=== PATIENT | female | born 1990 | race Hispanic/Latino ===

== ENCOUNTER 2019-01-16 09:34 | Day surgery (SDC) | payer OTHER, SELFPAY ==
[2019-01-16 10:01] LABS: Specific Gravity >= 1.030 (1.005-1.030)
[2019-01-16] MEDS ORDERED: Ringers Lactate 1,000 ML IV ONE (10:07)
[2019-01-16] MEDS ORDERED: CEFAZOLIN/SWI 2gm 2 GM/20 ML SYR ONE (10:30)
[2019-01-16] MEDS ORDERED: FENTANYL CITR 100 MCG/2 ML ONE (12:24)
[2019-01-16] MEDS ORDERED: PROPOFOL 200 MG/20 ML VIAL IV ONE (12:24)
[2019-01-16] MEDS ORDERED: MIDAZOLAM HCL 2 MG/2 ML INJ ONE (12:25)
[2019-01-16] MEDS ORDERED: LIDOCAINE 2% MPF 5 ML VIAL ONE (12:25)
[2019-01-16] MEDS ORDERED: LIDOCAINE 1% MPF 30 ML VIAL ONE (12:29)
[2019-01-16] MEDS ORDERED: LIDOCAINE 1% W/EPI 1:100,000 MDV 50 ML VIAL ONE (12:41)
[2019-01-16 13:40] VITALS: O2SAT 100
[2019-01-16] MEDS ORDERED: KETOROLAC 30 MG/ML INJ ONE (13:41)
[2019-01-16 15:43] VITALS: BP 124/74; TEMP 97.9
== END 2019-01-16 15:47 | disposition home or self-care (01) ==
LOC: OR 09:34
PROVIDERS: ATTEND Obstetrics & Gynecology
PROC: 0UBM0ZZ Excision of Vulva, Open Approach (ICD-10-PCS; 2019-01-16)
PROC: 0UJH8ZZ Inspection of Vagina and Cul-de-sac, Via Natural or Artificial Opening Endoscopic (ICD-10-PCS; principal; 2019-01-16 12:00)
DX: D07.1 Carcinoma in situ of vulva (principal); N90.0 Mild vulvar dysplasia; E03.9 Hypothyroidism, unspecified; Z80.0 Family history of malignant neoplasm of digestive organs
CPT/HCPCS: 81025; 88305; J0690; J2250; J2704; J3010

== ENCOUNTER 2021-06-16 02:57 | Emergency (ER) | payer OTHER ==
[2021-06-16] MEDS ORDERED: ONDANSETRON 4 MG/2 ML VIAL ONE (03:46)
[2021-06-16] MEDS ORDERED: MORPHINE 4 MG/ML SYR ONE ×2 (03:46→04:39)
[2021-06-16] MEDS ORDERED: NA CHLORIDE 0.9% 1,000 ML ONE (03:47)
[2021-06-16 03:55] LABS: Absolute Lymphocytes (CBC) 2.7 K/uL (0.7-4.9); Basophils % 0.4 % (0-1.3); Hematocrit 39.6 % (36.0-45.0); MPV 7.3 fL (7.6-11.3); RBC Red Blood Cell Count 4.47 M/uL (3.86-4.86)
[2021-06-16 04:06] LABS: ALT/SGPT 31 U/L (12-78); AST/SGOT 16 U/L (15-37); Albumin 3.8 g/dL (3.4-5.0); Alkaline Phosphatase 56 U/L (45-117); BUN Blood Urea Nitrogen 20 mg/dL (7-18); Bicarbonate 27 mmol/L (21-32); Bilirubin Direct < 0.1 mg/dL (0-0.2); Bilirubin Total 0.2 mg/dL (0.2-1.0); Glucose Level 98 mg/dL (74-106); Lipase 139 U/L (73-393); Potassium 3.7 mmol/L (3.5-5.1); Protein, Total 7.7 g/dL (6.4-8.2); Sodium Level 142 mmol/L (136-145)
--- NOTE | 2021-06-16 04:32 | EDPHYS ---
Physician Documentation [facility] Name: Anita Douglass Age: 31 yrs Sex: Female : 1990 Arrival Date: 06/16/2021 Time: 03:00 Bed 20 Private MD: ED Physician Pranay Wayne HPI: 06/16 03:27 This 31 yrs old Female presents to ER via Ambulatory with complaints of Chest pkl Pain. 03:27 The patient presents with abdominal pain in the right upper quadrant. Onset: The pkl symptoms/episode began/occurred yesterday. The symptoms radiate to right back. Associated signs and symptoms: Pertinent positives: nausea. 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 - Social history:: Smoking status: Patient denies any tobacco usage or history of. - Family history:: not pertinent. - Code Status:: Full code. ROS: 03:27 Eyes: Negative for injury, pain, redness, and discharge, ENT: Negative for injury, pkl pain, and discharge, Neck: Negative for injury, pain, and swelling. 03:27 Cardiovascular: Positive for chest pain. 03:27 Respiratory: Negative for cough, shortness of breath. 03:27 Abdomen/GI: Positive for abdominal pain, nausea, of the right upper quadrant. 03:27 Back: Negative for acute changes. 03:27 : Negative for urinary symptoms. 03:27 MS/extremity: Negative for acute changes. 03:27 Skin: Negative for rash. 03:27 Neuro: Negative for altered mental status, loss of consciousness. Exam: 03:27 Head/Face: Normocephalic, atraumatic. Eyes: Pupils equal round and reactive to light, pkl extra-ocular motions intact. Lids and lashes normal. Conjunctiva and sclera are non-icteric and not injected. Cornea within normal limits. Periorbital areas with no swelling, redness, or edema. ENT: Nares patent. No nasal discharge, no septal abnormalities noted. Tympanic membranes are normal and external auditory canals are clear. Oropharynx with no redness, swelling, or masses, exudates, or evidence of obstruction, uvula midline. Mucous membranes moist. Neck: Trachea midline, no thyromegaly or masses palpated, and no cervical lymphadenopathy. Supple, full range of motion without nuchal rigidity, or vertebral point tenderness. No Meningismus. Chest/axilla: Normal chest wall appearance and motion. Nontender with no deformity. No lesions are appreciated. Cardiovascular: Regular rate and rhythm with a normal S1 and S2. No gallops, murmurs, or rubs. Normal PMI, no JVD. No pulse deficits. Respiratory: Lungs have equal breath sounds bilaterally, clear to auscultation and percussion. No rales, rhonchi or wheezes noted. No increased work of breathing, no retractions or nasal flaring. 03:27 Abdomen/GI: Bowel sounds: normal, Palpation: soft, mild abdominal tenderness, in the right upper quadrant. 03:27 Back: Exam negative for acute changes. 03:27 : Exam negative for acute changes. 03:27 Musculoskeletal/extremity: Exam is negative for acute changes. 03:27 Skin: Exam negative for rash. 03:27 Neuro: Orientation: is normal, Mentation: is normal, Cranial nerves: grossly normal, Motor: is normal. Vital Signs: 03:01 BP 148 / 88; Pulse 84; Resp 18; Temp 97.9; Pulse Ox 100% on R/A; Weight 77.11 kg; mr2 Height 5 ft. 3 in. (160.02 cm); Pain 6/10; 03:18 BP 126 / 95; Pulse 80; Resp 20; Pulse Ox 100% on R/A; cc4 04:50 BP 140 / 89; Pulse 63; Resp 18; Temp 98.4; Pulse Ox 100% on R/A; cc4 03:01 Body Mass Index 30.11 (77.11 kg, 160.02 cm) mr2 MDM: 03:14 Patient medically screened. pkl 04:26 Data reviewed: vital signs, nurses notes, lab test result(s), EKG, radiologic studies, pkl ultrasound. ED course: Patient feeling better. Pain resolved. Discussed lab and US results with patient. Advised to follow up with Dr. Mejía ( General Surgeon ) in 2 to 3 days. To return if necessary. Patient understood instruction. 06/16 03:31 Order name: Basic Metabolic Panel; Complete Time: 04:23 pkl 06/16 03:31 Order name: CBC with Diff; Complete Time: 04:23 pkl 06/16 03:31 Order name: Hepatic Function; Complete Time: 04:23 pkl 06/16 03:31 Order name: Lipase; Complete Time: 04:23 pkl 06/16 03:31 Order name: US Abdomen Limited pkl 06/16 03:31 Order name: IV Saline Lock; Complete Time: 03:37 pkl 06/16 03:31 Order name: Labs collected and sent; Complete Time: 03:37 pkl Administered Medications: 03:45 Drug: NS 0.9% 1000 ml Route: IV; Rate: 125 ml/hr; Site: left forearm; cc4 05:08 Follow up: IV Status: Order to discontinue infusion; IV Intake: 350ml cc4 03:45 Drug: morphine 4 mg Route: IVP; Site: left forearm; cc4 04:00 Follow up: Response: No adverse reaction; Pain is decreased cc4 03:45 Drug: Zofran (Ondansetron) 4 mg Route: IVP; Site: left antecubital; cc4 04:00 Follow up: Response: No adverse reaction cc4 04:43 Drug: morphine 4 mg Route: IVP; Site: left forearm; cc4 04:50 Follow up: Response: No adverse reaction; Pain is decreased cc4 Disposition Summary: 06/16/21 04:31 Discharge Ordered Location: Home pkl Problem: new pkl Symptoms: are resolved pkl Condition: Stable pkl Diagnosis - Abdominal pain. Cholelituiasis pkl Followup: pkl - With: Kristian Mejía MD - When: 2 - 3 days - Reason: Re-evaluation by your physician Discharge Instructions: - Discharge Summary Sheet pkl Forms: - Medication Reconciliation Form pkl - Thank You Letter pkl - Antibiotic Education pkl - Prescription Opioid Use pkl Prescriptions: - Augmentin 875-125 mg Oral Tablet - take 1 tablet by ORAL route every 12 hours for 7 days; 14 tablet; Refills: 0, pkl Product Selection Permitted Signatures: Dispatcher [employer] Pranay Barksdale MD MD pkl Cooper, Christie, RN RN cc4 Salazar Moses, CAROLYN RN mr2
--- NOTE | 2021-06-16 04:32 | ER ---
Nurse's Notes [facility] Name: Anita Douglass Age: 31 yrs Sex: Female : 1990 Arrival Date: 06/16/2021 Time: 03:00 Bed 20 Private MD: Diagnosis: Abdominal pain. Cholelituiasis Presentation: 06/16 03:01 Chief complaint: Patient states: has had cp x2 days sub sternal stabbing 6/10 radiates mr2 to back also rpts nausea abd pain, denies chills fever. Coronavirus screen: Vaccine status: Patient reports receiving the 1st dose of the Covid vaccine. Date May 13, 2021. Ebola Screen: Patient negative for fever greater than or equal to 101.5 degrees Fahrenheit, and additional compatible Ebola Virus Disease symptoms Patient denies exposure to infectious person. Patient denies travel to an Ebola-affected area in the 21 days before illness onset. Initial Sepsis Screen: Does the patient meet any 2 criteria? No. Patient's initial sepsis screen is negative. Does the patient have a suspected source of infection? No. Patient's initial sepsis screen is negative. Risk Assessment: Do you want to hurt yourself or someone else? Patient reports no desire to harm self or others. Onset of symptoms was June 14, 2021. 03:01 Method Of Arrival: Ambulatory mr2 03:01 Acuity: ONDINA 3 mr2 Triage Assessment: 03:10 General: Appears uncomfortable, Behavior is calm, cooperative. Pain: Complains of pain mr2 in xiphoid area and mid-sternal area. Cardiovascular: Reports chest pain, shortness of breath. 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 - Social history:: Smoking status: Patient denies any tobacco usage or history of. - Family history:: not pertinent. - Code Status:: Full code. Screenin:15 Abuse screen: Denies threats or abuse. Nutritional screening: No deficits noted. cc4 Tuberculosis screening: No symptoms or risk factors identified. Fall Risk None identified. Assessment: 03:15 Pain: Complains of pain in mid-sternal area Pain does not radiate. Pain currently is 7 cc4 out of 10 on a pain scale. at worst was 10 out of 10 on a pain scale. level that patient reports is acceptable is 0 out of 10 on a pain scale. Quality of pain is described as piercing, Pain began x 2 days. 03:45 Reassessment: Patient appears in no apparent distress at this time. No changes from cc4 previously documented assessment. IV NS hung to saline lock left inner forearm \T\ 125 ml/hr/pump with no s/s's of infection/infiltration noted of site; morphine 4 mg \T\ zofran 4 mg given low IVP; US tech in \T\ bedside completing US of abdomen, larry. well. 04:00 General: Reports midsternal chest pain decreased to 2/10 on pain scale. cc4 04:43 Reassessment: c/o mid sternal chest pain 6/10 on pain scale; Dr. Wayne notified with cc4 order rec 'd to give additional morphine 4 mg \T\ then she can be discharged; morphine 4 mg given IVP; Rx \T\ discharge instructions given with v/u. Vital Signs: 03:01 BP 148 / 88; Pulse 84; Resp 18; Temp 97.9; Pulse Ox 100% on R/A; Weight 77.11 kg; mr2 Height 5 ft. 3 in. (160.02 cm); Pain 6/10; 03:18 BP 126 / 95; Pulse 80; Resp 20; Pulse Ox 100% on R/A; cc4 04:50 BP 140 / 89; Pulse 63; Resp 18; Temp 98.4; Pulse Ox 100% on R/A; cc4 03:01 Body Mass Index 30.11 (77.11 kg, 160.02 cm) mr2 ED Course: 03:00 Patient arrived in ED. bp1 03:09 Triage completed. mr2 03:10 Arm band placed on. mr2 03:14 Pranay Wayne MD is Attending Physician. pkl 03:15 secured entrance monitor on. Pulse ox on. NIBP on. EKG done. cc4 03:15 Patient has correct armband on for positive identification. Placed in gown. Bed in low cc4 position. Call light in reach. Side rails up X 1. Adult w/ patient. 03:15 Patient maintains SpO2 saturation greater than 95% on room air. O2 via O2 sat 100% RA. cc4 03:25 Lisa Chinchilla, RN is Primary Nurse. cc4 03:36 Inserted saline lock: 22 gauge in left forearm, using aseptic technique. Blood jb5 collected. 03:38 Basic Metabolic Panel Sent. jb5 03:38 CBC with Diff Sent. jb5 03:38 Hepatic Function Sent. jb5 03:38 Lipase Sent. jb5 03:42 US Abdomen Limited Sent. cc4 04:10 US Abdomen Limited In Process Unspecified. EDMS 04:14 CBC with Diff Sent. cc4 04:30 Kristian Mejía MD is Referral Physician. pkl 04:50 No provider procedures requiring assistance completed. cc4 04:50 IV discontinued, intact, bleeding controlled, No redness/swelling at site. Pressure cc4 dressing applied. Administered Medications: 03:45 Drug: NS 0.9% 1000 ml Route: IV; Rate: 125 ml/hr; Site: left forearm; cc4 05:08 Follow up: IV Status: Order to discontinue infusion; IV Intake: 350ml cc4 03:45 Drug: morphine 4 mg Route: IVP; Site: left forearm; cc4 04:00 Follow up: Response: No adverse reaction; Pain is decreased cc4 03:45 Drug: Zofran (Ondansetron) 4 mg Route: IVP; Site: left antecubital; cc4 04:00 Follow up: Response: No adverse reaction cc4 04:43 Drug: morphine 4 mg Route: IVP; Site: left forearm; cc4 04:50 Follow up: Response: No adverse reaction; Pain is decreased cc4 Intake: 05:08 IV: 350ml; Total: 350ml. cc4 Outcome: 04:31 Discharge ordered by . pkl 04:50 Discharged to home ambulatory, with . cc4 04:50 Condition: improved 04:50 Discharge instructions given to patient, Instructed on discharge instructions, follow up and referral plans. medication usage, Demonstrated understanding of instructions, follow-up care, medications, Prescriptions given X 1. 05:08 Patient left the ED. cc4 Signatures: Dispatcher [employer] EDMS Pranay Wayne MD MD pkl Misael, Franny jb5 Fanny Souza Christie, RN RN cc4 Salazar Moses RN RN mr2
[2021-06-16 05:14] VITALS: O2SAT 100
[2021-06-16 05:18] VITALS: BP 140/89; TEMP 98.4
--- NOTE | 2021-06-16 08:02 | RAD REPORT ---
EXAM DESCRIPTION: US - Abdomen Exam Limited - 06/16/2021 4:10 am CLINICAL HISTORY: Abdominal pain. COMPARISON: 2013 FINDINGS: Stone within the neck of the gallbladder. Small to moderate amount of sludge. Gallbladder wall is not thickened The biliary tree is normal caliber. IMPRESSION: Cholelithiasis and gallbladder sludge
--- OUTSIDE RECORDS SUMMARY | 2021-06-25 10:31 | XMS REPORT | Continuity of Care Document ---
:1990 Author Organization [facility] t Address [address] [place] [address] Care Team Providers Name Role Phone DYLON LYNN Attending Clinician Unavailable Lab Attending Clinician Unavailable Franklin Melendez Attending Clinician Franklin GAMING Attending Clinician Unavailable Doctor Unassigned, Name Attending Clinician Unavailable DYLON LYNN Admitting Clinician Unavailable Payers Payer Name Policy Type Policy Number Effective Date Expiration Date S loy COUNT INCLUDES THE [facility] [id number] 2019 CHOICE EXCHANGE 00:00:00 [facility] [id number] 2019 CHOICE 00:00:00 MEDICAID COMM [id number] 2019 HEALTH CHOICE 00:00:00 Advance Directives Directive Decision Effective Termination Comments Source Date Date Healthcare Agents on N/A [facility] FileNameRelationshipHealthcare [facility] Agent Medical RelationshipCommunicationTheresa Branch Ru[facility] healthcare [phone] (Mobile) Problems Condition Condition Condition Status Onset Resolution Last Treating Co mments Source Name Details Category Date Date Treatment Clinician Date Supervisio Supervisio Disease Active 2020-0 U nivers n of high n of high 5-19 ity of risk risk 00:00: [place] , , 00 Me dical antepartum antepartum Br anch Multiparit Multiparit Disease Active 2020-0 U nivers y y 5-19 ity of 00:00: [place] 00 Medical Branch History of History of Disease Active U nivers thyroid thyroid 5-19 ity of disease disease 00:00: [place] 00 Medical Branch Class 1 Class 1 Disease Active 2019- Univers obesity obesity 5-19 [place] of with body [place] mass index 00 Me dical (BMI) of (BMI) of Branch 30.0 to 30.0 to 30.9 in 30.9 in adult, adult, unspecifie unspecifie d obesity d obesity type, type, unspecifie unspecifie d whether d whether serious serious comorbidit comorbidit y present y present Vaginal Vaginal Disease Active Univers bleeding bleeding -19 ity of in in 00:00: [place] , , 00 Me dical first first Branch trimester trimester BMI BMI Disease Active Univers 31.0-31.9, 31.0-31.9, 5-19 it y of adult adult 00:00: [place] Medical Branch History of History of Disease Active U nivers spontaneou spontaneou 5-19 it y of s s 00:00: [place] , , 00 Medi christopher currently currently Bran ch , , first first trimester trimester Body mass Body mass Problem Active [facility] index index [facility] - (BMI) of (BMI) of Memori a 32.0-32.9 32.0-32.9 l in adult in adult Outpat i ent Clinics High High Problem Active [facility] cholestero cholestero Birdie kes - l l Memoria [facility] ent Clinics Acquired Acquired Problem Active [facility] hypothyroi hypothyroi Birdie kes - dism dism Memoria l [facility] ent Clinics Asthma, Asthma, Problem Active [facility] unspecifie unspecifie Birdie kes - d asthma d asthma Memori a severity, severity, l unspecifie unspecifie Ou tpati d whether d whether ent complicate complicate Cl inics d, d, unspecifie unspecifie d whether d whether persistent persistent LGSIL on LGSIL on Problem Active [facility] t Pap smear Pap smear Luke s - of cervix of cervix Cosme ewa l [facility] ent Clinics Vitamin D Vitamin D Problem Active [facility] deficiency deficiency Birdie kes - Memoria l [facility] ent Clinics Chronic Chronic Problem Active [facility] fatigue fatigue [facility] - Memoria l [facility] ent Clinics Allergies, Adverse Reactions, Alerts Allergy Allergy Status Severity Reaction(s) Onset Inactive Treating Comm ents Source Name Type Date Date Clinician NO KNOWN Drug Active Univers ALLERGIE Class ity of [facility] NO KNOWN Allergy Active [facility] ALLERGIE S Social History Social Habit Start Date Stop Date Quantity Comments Source ASSERTION 2019-12-09 [facility] 00:00:00 [facility] Exposure to Not sure [facility] SARS-CoV-2 (event) Medica l Branch Sex Assigned At [facility] Branch Alcohol intake 2019-12-30 2019-12-30 [facility] 00:00:00 00:00:00 Medical Branch Smoking Status Start Date Stop Date Source Unknown if ever smoked [facility] Never smoker [facility] Medications Ordered Filled Start Stop Current Ordering Indication Dosage Frequency Signature Comments Components Source Medication Medication Date Date Medication? Clinician (SIG) Name Name levothyroxi 2019- No 50ug Take 50 Un maddison ne 5-21 05-21 mcg by ity of (LEVOTHROID 14:48[place] 25 mcg 30 :00 every Medical tablet morning. Branch levothyroxi 2020- No 50ug Take 50 Un maddison ne 5-21 05-21 mcg by ity of (LEVOTHROID 14:48: 00:[place] 25 mcg 30 :00 every Medical tablet morning. Branch levothyroxi 2020- No 50ug Take 50 Un maddison ne 5-21 05-21 mcg by ity of (LEVOTHROID 14:48: [place] 25 mcg 30 :00 every Medical tablet morning. Branch levothyroxi 2020- No 50ug Take 50 Un maddison ne 5-21 05-21 mcg by ity of (LEVOTHROID 14:48: 00:[place] 25 mcg 30 :00 every Medical tablet morning. Branch levothyroxi 0 2020- No 50ug Take 50 Un maddison ne 5-21 05-21 mcg by ity of (LEVOTHROID 14:48: 00:[place] 25 mcg 30 :00 every Medical tablet morning. Branch levothyroxi Yes [id number] 50ug Take 2 Univers ne 5-21 tablets by ity of (LEVOTHROID 00:00: mouth [place] ) 25 mcg 00 every Medical tablet morning. Branch levothyroxi 2020-0 Yes [id number] 50ug Take 2 Univers ne 5-21 tablets by ity of (LEVOTHROID 00:00: mouth [place] ) 25 mcg 00 every Medical tablet morning. Branch levothyroxi 2020-0 Yes [id number] 50ug Take 2 Univers ne 5-21 tablets by ity of (LEVOTHROID 00:00: mouth [place] ) 25 mcg 00 every Medical tablet morning. Branch levothyroxi 2020-0 Yes [id number] 50ug Take 2 Univers ne 5-21 tablets by ity of (LEVOTHROID 00:00: mouth [place] ) 25 mcg 00 every Medical tablet morning. Branch levothyroxi 2020-0 Yes [id number] 50ug Take 2 Univers ne 5-21 tablets by ity of (LEVOTHROID 00:00: mouth [place] ) 25 mcg 00 every Medical tablet morning. Branch levothyroxi 2020-0 Yes [id number] 50ug Take 2 Univers ne 5-21 tablets by ity of (LEVOTHROID 00:00: mouth [place] ) 25 mcg 00 every Medical tablet morning. Branch levothyroxi 2020-0 Yes 50ug Take 50 Uni vers ne 5-19 mcg by ity of (LEVOTHROID 16:40: mouth [place] ) 25 mcg 52 every Medical tablet morning. Branch levothyroxi 2020-0 Yes 50ug Take 50 Uni vers ne 5-19 mcg by ity of (LEVOTHROID 16:40: mouth [place] ) 25 mcg 52 every Medical tablet morning. Branch levothyroxi 2020-0 Yes 50ug Take 50 Uni vers ne 5-19 mcg by ity of (LEVOTHROID 16:40: mouth [place] ) 25 mcg 52 every Medical tablet morning. Branch levothyroxi 2020-0 Yes 50ug Take 50 Uni vers ne 5-19 mcg by ity of (LEVOTHROID 16:40: mouth [place] ) 25 mcg 52 every Medical tablet morning. Branch levothyroxi 2020-0 Yes 50ug Take 50 Uni vers ne 5-19 mcg by ity of (LEVOTHROID 16:40: mouth [place] ) 25 mcg 52 every Medical tablet morning. Branch levothyroxi 2020-0 Yes 50ug Take 50 Uni vers ne 5-19 mcg by ity of (LEVOTHROID 16:40: mouth [place] ) 25 mcg 52 every Medical tablet morning. Branch levothyroxi 2020-0 Yes 50ug Take 50 Uni vers ne 5-19 mcg by ity of (LEVOTHROID 16:40: mouth [place] ) 25 mcg 52 every Medical tablet morning. Branch levothyroxi 2020-0 Yes 50ug Take 50 Uni vers ne 5-19 mcg by ity of (LEVOTHROID 16:40: mouth [place] ) 25 mcg 52 every Medical tablet morning. Branch 2020-0 Yes [id number] 1{packe Take 1 Univers vit 5-19 t} Packet by ity of 33-iron-fol 00:00: mouth [place] ic-dha 00 daily. [facility] 29 mg iron-1 mg -250 mg combo pack 2019-0 Yes [id number] 1{packe Take 1 Univers vit 5-19 t} Packet by ity of 33-iron-fol 00:00: mouth [place] ic-dha 00 daily. Medical ([facility] Branch + DHA) 29 mg iron-1 mg -250 mg combo pack 0 Yes [id number] 1{packe Take 1 Univers vit 5-19 t} Packet by ity of 33-iron-fol 00:00: mouth [place] ic-dha 00 daily. Medical ([facility] Branch + DHA) 29 mg iron-1 mg -250 mg combo pack 2019-0 Yes [id number] 1{packe Take 1 Univers vit 5-19 t} Packet by ity of 33-iron-fol 00:00: mouth [place] ic-dha 00 daily. Medical ([facility] Branch + DHA) 29 mg iron-1 mg -250 mg combo pack 2019-0 Yes [id number] 1{packe Take 1 Univers vit 5-19 t} Packet by ity of 33-iron-fol 00:00: mouth [place] ic-dha 00 daily. Medical ([facility] Branch + DHA) 29 mg iron-1 mg -250 mg combo pack 2019-0 Yes [id number] 1{packe Take 1 Univers vit 5-19 t} Packet by ity of 33-iron-fol 00:00: mouth [place] ic-dha 00 daily. Medical ([facility] Branch + DHA) 29 mg iron-1 mg -250 mg combo pack 2020-0 Yes [id number] 1{packe Take 1 Univers vit 5-19 t} Packet by ity of 33-iron-fol 00:00: mouth [place] ic-dha 00 daily. Medical ([facility] Branch + DHA) 29 mg iron-1 mg -250 mg combo pack 2020-0 Yes [id number] 1{packe Take 1 Univers vit 5-19 t} Packet by ity of 33-iron-fol 00:00: mouth [place] ic-dha 00 daily. Medical ([facility] Branch + DHA) 29 mg iron-1 mg -250 mg combo pack 2020-0 Yes [id number] 1{packe Take 1 Univers vit 5-19 t} Packet by ity of 33-iron-fol 00:00: mouth [place] ic-dha 00 daily. Medical ([facility] Branch + DHA) 29 mg iron-1 mg -250 mg combo pack 2020-0 Yes [id number] 1{packe Take 1 Univers vit 5-19 t} Packet by ity of 33-iron-fol 00:00: mouth [place] ic-dha 00 daily. Medical ([facility] Branch + DHA) 29 mg iron-1 mg -250 mg combo pack 2020-0 Yes [id number] 1{packe Take 1 Univers vit 5-19 t} Packet by ity of 33-iron-fol 00:00: mouth [place] ic-dha 00 daily. Medical ([facility] Branch + DHA) 29 mg iron-1 mg -250 mg combo pack 2020-0 Yes [id number] 1{packe Take 1 Univers vit 5-19 t} Packet by ity of 33-iron-fol 00:00: mouth [place] ic-dha 00 daily. Medical ([facility] Branch + DHA) 29 mg iron-1 mg -250 mg combo pack 2020-0 Yes [id number] 1{packe Take 1 Univers vit 5-19 t} Packet by ity of 33-iron-fol 00:00: mouth [place] ic-dha 00 daily. Medical ([facility] Branch + DHA) 29 mg iron-1 mg -250 mg combo pack 2020-0 Yes [id number] 1{packe Take 1 Univers vit 5-19 t} Packet by ity of 33-iron-fol 00:00: mouth [place] ic-dha 00 daily. Medical ([facility] Branch + DHA) 29 mg iron-1 mg -250 mg combo pack 2020-0 Yes [id number] 1{packe Take 1 Univers vit 5-19 t} Packet by ity of 33-iron-fol 00:00: mouth [place] ic-dha 00 daily. Medical ([facility] Branch + DHA) 29 mg iron-1 mg -250 mg combo pack Yes [id number] 1{packe Take 1 Univers vit 5-19 t} Packet by ity of 33-iron-fol 00:00: mouth [place] ic-dha 00 daily. Medical ([facility] Branch + DHA) 29 mg iron-1 mg -250 mg combo pack Levothyroxi Levothyroxi Yes Mikaela [address] [facility] ne Sodium ne Sodium 9-30 [place] on an V[place] es - 00:00: empty Memoria 00 stomach in l the Outpati morning ent Clinics levothyroxi Yes 25ug Take 25 Uni vers ne 8-15 mcg by ity of (LEVOTHROID 03:30: mouth [place] ) 25 mcg 05 every Medical tablet morning. Branch butalbital- Yes 1{tbl} Take 1 Tab Univers acetaminoph 8-15 by mouth ity of en-caff 00:00: every 4 [place] (ESGIC) 00 (four) Medical 50-325-40 hours as Branch mg tablet needed for Headache. butalbital- 2020- No 1{tbl} Take 1 Tab Univers acetaminoph 8-15 05-19 by mouth ity of en-caff 00:00: 00:00 every 4 [place] (ESGIC) 00 :00 (four) Medical 50-325-40 hours as Branch mg tablet needed for Headache. Vital Signs Vital Name Observation Time Observation Value Comments Source HEIGHT 2020-06-21 07:07:00 160 cm WEIGHT 2020-06-21 07:07:00 77.111 kg HEIGHT 2020-06-15 09:24:00 160 cm WEIGHT 2020-06-15 09:24:00 77.111 kg HEIGHT 2021-04-04 11:18:00 157.5 cm WEIGHT 2021-04-04 11:18:00 78.019 kg HEIGHT 2020-09-16 13:35:00 160 cm WEIGHT 2020-09-16 13:35:00 78.563 kg HEIGHT 2020-07-06 09:45:00 160 cm WEIGHT 2020-07-06 09:45:00 77.111 kg HEIGHT 2020-06-21 07:07:00 160 cm WEIGHT 2020-06-21 07:07:00 77.111 kg HEIGHT 2020-06-15 09:24:00 160 cm WEIGHT 2020-06-15 09:24:00 77.111 kg HEIGHT 2020-06-10 10:04:00 160 cm WEIGHT 2020-06-10 10:04:00 78.835 kg HEIGHT 2020-05-06 00:00:00 160 cm WEIGHT 2020-05-06 00:00:00 77.656 kg HEIGHT 2020-02-19 00:00:00 160 cm WEIGHT 2020-02-19 00:00:00 77.474 kg Systolic blood 2019-12-30 16:06:00 116 mm[Hg] Univer sity pressure [facility] Diastolic blood 2019-12-30 16:06:00 81 mm[Hg[facility] 2019-12-30 16:06:00 88 /min [facility] Body temperature 2019-12-30 16:06:00 36.56 Nazanin [facility] Respiratory rate 2019-12-30 16:06:00 16 /min [facility] Body height 2019-12-30 16:06:00 157.5 cm [facility] Body weight 2019-12-30 16:06:00 79.011 kg [facility] BMI 2019-12-30 16:06:00 31.86 kg/m2 [facility] Procedures Procedure Date / Time Performed Performing Clinician Sourc e POCT URINALYSIS 2019-12-30 16:21:00 Jena Gaming [facility] POCT TEST 2019-12-30 16:20:00 [facility] ASSIGNMENT OF BENEFITS 2019-12-30 15:56:26 Doctor Unassigned, No [facility] Encounters Start End Encounter Admission Attending Care Care Encounter Source Date/Time Date/Time Type Type Clinicians Facility Department ID 2021-05-18 Outpatient [id number] 2021-07-05 2021-07-[address] [id number] 00:00:00 00:00:00 [facility] 2021-06-09 2021-06-09 Outpatient MANPREET [facility] [id number] [facility] 00:00:00 00:00:00 [facility] 2021-05-27 2021-05-27 Outpatient [facility] [id number] 07:53:25 08:17:01 [facility] 2021-05-26 2021-05-26 Outpatient MANPREET [facility] [id number] 15:30:05 15:57:53 [facility] 2021-04-12 2021-04-12 Outpatient EL [facility] [id number] [facility] 00:00:00 00:00:00 2021-04-04 2021-04-04 Outpatient MANPREET [facility] [id number] [facility] 00:00:00 00:00:00 [facility] 2021-04-04 2021-04-04 Outpatient MANPREET [facility] [id number] [facility] [facility] 00:00:00 00:00:00 [facility] 2021-02-16 2021-02-16 Outpatient MANPREET [facility] [id number] 00:00:00 00:00:00 [facility] 2021-02-15 2021-02-15 Outpatient [facility] [id number] 00:00:00 00:00:00 [facility] 2021-02-11 2021-02-11 Outpatient [facility] [id number] 00:00:00 00:00:00 [facility] 2021-02-04 2021-02-04 Outpatient [facility] [id number] 00:00:00 00:00:00 [facility] 2021-01-18 2021-01-18 Outpatient MANPREET [facility] [id number] 00:00:00 00:00:00 [facility] 2021-01-14 2021-01-14 Outpatient [facility] [id number] 00:00:00 00:00:00 [facility] 2021-01-12 2021-01-12 Outpatient [facility] [id number] 00:00:00 00:00:00 [facility] 2020-12-23 2020-12-23 Outpatient [facility] [id number] 00:00:00 00:00:00 [facility] 2020-12-22 2020-12-22 Outpatient [facility] [id number] 00:00:00 00:00:00 [facility] 2020-12-20 2020-12-20 Outpatient [facility] [id number] 13:10:55 13:10:55 [facility] 2020-12-15 2020-12-15 Outpatient MANPREET, [facility] [id number] 00:00:00 00:00:00 [facility] 2020-12-10 2020-12-10 Outpatient [facility] [id number] 00:00:00 00:00:00 [facility] 2020-12-09 2020-12-09 Outpatient [facility] [id number] 00:00:00 00:00:00 [facility] 2020-11-29 2020-11-29 Outpatient [facility] [id number] 00:00:00 00:00:00 [facility] 2020-11-12 2020-11-12 Outpatient [facility] [id number] 00:00:00 00:00:00 [facility] 2020-11-08 2020-11-08 Outpatient [facility] [id number] 00:00:00 00:00:00 [facility] 2020-11-01 2020-11-01 Outpatient [facility] [id number] 00:00:00 00:00:00 [facility] 2020-10-06 2020-10-06 Outpatient MANPREET, [facility] [id number] 00:00:00 00:00:00 [facility] 2020-09-16 2020-09-16 Outpatient MANPREET, [facility] [id number] 00:00:00 00:00:00 [facility] 2020-09-02 2020-09-02 Outpatient MANPREET, [facility] [id number] 00:00:00 00:00:00 [facility] 2020-07-06 2020-07-06 Outpatient MANPREET, [facility] [id number] [id number] 00:[facility]00 00:00:00 [facility] 2020-06-16 2020-06-16 Outpatient EL [facility] [id number] [facility] 00:00:00 00:00:00 2020-06-10 2020-06-10 Outpatient MANPREET, [facility] [id number] [id number] 00:00:00 [facility] 2020-05-25 2020-05-25 Outpatient MANPREET, [facility] [id number] [facility] 00:[facility]00 00:00:00 [facility] 2020-05-10 2020-05-10 Outpatient MANPREET, [facility] [id number] [id number] 00:[facility]00 00:00:00 [facility] 2020-05-06 2020-05-06 Outpatient MANPREET, [facility] [id number] [facility] 00:[facility]00 00:00:00 [facility] 2020-05-06 2020-05-06 Outpatient MANPREET, [facility] [id number] 00:00:00 00:00:00 [facility] 2020-04-01 2020-04-01 Outpatient MANPREET, [facility] [id number] 00:00:00 00:00:00 [facility] 2020-02-25 2020-02-25 Outpatient R [facility] [id number] Univers 09:15:00 09:15:00 [id number] [facility] 2020-02-25 2020-02-25 Outpatient P [facility] [id number] Univers 09:15:00 09:15:[address] [facility] 2020-02-19 2020-02-19 Outpatient MANPREET [facility] [id number] 00:00:00 00:00:00 [facility] 2020-01-12 2020-01-12 Outpatient R [facility] [id number] Univers 10:15:00 10:15:[address] [facility] 2020-01-12 2020-01-12 Outpatient R [facility] [id number] Univers 10:15:00 10:15:[address] [facility] 2020-01-09 2020-01-09 [facility] 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 [id number] ity of REGIONAL [id number] Amor as MATERNAL [id number] Med ical & CHILD [address] [place] [address] 2020-01-09 2020-01-09 Outpatient R [facility] [id number] Univers 07:45:00 07:45:00 [id number] ity [facility] 2020-01-09 2020-01-09 [id number] Univers 07:45:00 07:45:[address]DA it[address] o [address] [facility] 2020-01-08 2020-01-08 Telephone Amberly [facility] [id number] Univers 00:00:00 00:00:00 Jena Reid 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 [id number] ity of REGIONAL [id number] Amor as MATERNAL [id number] Med ical & CHILD [address] [place] [address] 2020-01-01 2020-01-01 Outpatient R [facility] [id number] Univers 07:45:00 07:45:[id number] [facility] 2020-01-01 2020-01-01 Outpatient R GAMING [facility] [id number] Univers 07:45:00 07:45:[address] it[address] o f [facility] 2020-01-01 2020-01-01 Telephone Amberly [facility] [id number] Univers 00:00:00 00:00:00 Rosheathnda R 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 MACHINE OPERATOR [id number] ity of REGIONAL [id number] Amor as MATERNAL [id number] [facility] & CHILD [address] [place] [address] 2019-12-31 2019-12-31 [facility] [id number] 16:50:00 16:50:00 [facility] Medicine Medicine Outpati ent Clinics 2019-12-31 2019-12-31 [facility] [id number] Univers 00:00:00 00:00:00 Marienda R CURB MACHINE OPERATOR [id number] ity of REGIONAL [id number] Amor as MATERNAL [id number] [facility] & CHILD [address] [place] [address] 2019-12-30 2019-12-30 Initial Amberly [facility] [id number] Univers 11:03:27 11:49:50 Rosheathnda R CURB MACHINE OPERATOR [id number] ity of Visit REGIONAL [id number] Amor as MATERNAL [id number] [facility] & CHILD [address] [place] [address] 2019-12-30 2019-12-30 Outpatient R AMBERLY [facility] [id number] Univers 10:45:00 10:45:[address] it[address] o [address] [facility] 2019-12-30 2019-12-30 Orders Doctor LOZOYA [id number] Univers 00:00:00 00:00:00 Only Unassigned, GILA [id number] ity of [place] [facility] [id number] Amor as [id number] [address] 2019-12-30 2019-12-30 KELLIE Pradhan [id number] Univers 00:00:00 00:00:00 Jena Reid CURB MACHINE OPERATOR [id number] ity of [facility] [id number] Amor as MATERNAL [id number] Med ical & CHILD 107 [facility] 2019-10-28 2019-10-28 [facility] [id number] 14:46:00 14:46:00 [facility] ent [facility] 2019-10-22 2019-10-22 [facility] [id number] [facility] [address] 10:15:00 10:15:00 [facility] ent [facility] 2019-10-08 2019-10-08 [facility] [id number] [facility] [address] 08:20:00 08:20:00 [facility] ent [facility] 2019-05-12 2019-05-12 [facility] [id number] [facility] [address] 10:15:00 10:15:00 [facility] Results Test Description Test Time Test Comments Results Result [facility] e Comments [place], HYSTEROSALPINGOGRAM 2021-03-15 Reason for (RAD) 1 Exam:->FERTIL 14:13:00 [facility]ANN : 1990 Sex: F *FINAL REPORT Hysterosalpingogram: Clinical History: Trying to conceive, fertility workup Total fluoroscopy time: 0.2 Total number of films: 2 Radiation dose: 10.8 mGy Comparison: 06/21/2020 Comment: After the patient was placed supine in a lithotomy position, a speculum was inserted into the vagina exposing the cervical os. The cervix was cleansed with Hibiclens and a 5 Fr HSG catheter was advanced through the cervical os. Following water soluble contrast infusion under fluoroscopic observation multiple images were obtained. The uterine cavity is normal in size and shape without congenital anomaly or mass effect. The left fallopian tube demonstrated free intraperitoneal spill and is normal in contour. The right fallopian tube is not visualized. The patient tolerated the procedure well. Impression: The uterine cavity is normal. Left fallopian tube demonstrates free peritoneal spill. The right fallopian tube is not visualized. Signed: Jade Duenas MDReport Verified Date/Time: 04/12/2021 14:13:10 Reading Location: [facility] Radiology Reading Room EN, URINE 2021-04-12 12:59:00 Test Item Value Reference Range Interpretation Comme nts TEST URINE (BEAKER) (test code = 583) Negative MISCELLANEOUS LAB [id number] 20:12:00 Test Item Value Reference Range Interpretation Comments SCAN RESULT (test code = 6171314) FUNGUS CULTURE + [id number] 16:37:00 Test Item Value Reference Range Interpretation Comments CULTURE (BEAKER) (test No fungus isolated in code = 1095) 28 days FUNGUS SMEAR (BEAKER) No fungal elements seen (test code = 1406) VIRUS [id number] 20:11:00 Test Item Value Reference Range Interpretation Comments CULTURE (BEAKER) (test code No virus isolated = 1095) ANAEROBIC [id number] 11:38:00 Test Item Value Reference Range Interpretation Comments CULTURE (BEAKER) (test No anaerobes isolated code = 1095) SURGICALLY OBTAINED CULTURE + GRAM [id number] 13:53:00 Test Item Value Reference Range Interpretation Comments CULTURE (BEAKER) A 2+ Lactobac illus (test code = species 1095) GRAM STAIN <1+ WBCs RESULT (BEAKER) (test code = 1123) GRAM STAIN <1+ gram positive RESULT (BEAKER) rods (test code = 879122) TISSUE [id number] 14:36:00Surgical Pathology Report Case: [id number] Authorizing Provider: Glenn Lynn, Collected: 06/21/2020 12:26 PM OrderingLocation: [facility] PERIOPERATIVE Received: 06/21/2020 12:49 PM SERVICES Pathologist: Mariza Arnold MD Specimen: Soft Tissue, Other, Bilateral Ovarian Wedge Resection OVARIES, BILATERAL, WEDGE RESECTION: - OVARIAN PARENCHYMA WITH CYSTIC FOLLICLES Signing Pathologist Direct Phone Line: [phone] signed by Mariza Arnold MD on 06/22/2020 at 2:36 [id number] enorrhea, abdominal pain, menorrhagia, metrorrhagia, endometriosis, polycystic ovarian syndromeBilateral ovarian wedgeThe specimen is received in fixative and labeled with the patient's name, medical record number and designated as "soft tissue other" and consists of three pink-oswald ovarian tissue fragments measuring 2.5 x 1.5 x 0.5 cm in aggregate. The specimen is entirely submitted into A1. 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 No interpretation was requested. Refer to the operative report for findings. Refer to PACS for patient radiation dose information. SCREEN, [id number] 07:14:00 Test Item Value Reference Range Interpretation Comments TEST URINE (BEAKER) (test Negative code = 583) SARS-COV2/RT-PCR ([facility])2020-06-17 07:05:00 Test Item Value Reference Range Interpretation Comments SARS-COV2/RT-PCR (test Negative Not Detected, Negative, code = 5108505) See external report for linked test SARS-COV-2 PERFORMING LAB [facility] (test code = 4161348) Negative result for this test determines that SARS-CoV-2 RNA was not present in the specimen above the Limit of Detection (LOD). However, Negative results do not preclude SARS-CoV-2 infection and should not be used as the sole basis for treatment or patient management decisions. Negative results mustbe combined with clinical observations, patient history, and epidemiological information. A false negative result may occur if a specimen is improperly collected, transported or handled. A false negative result should be considered if patient's recent exposures or clinical presentation indicate that COVID-19 (SARS-CoV-2) is likely and diagnostic tests for other causes of illness are negative. Re-testing should be considered in cases of suspected false negatives.The limit of detection for this assay is 100 copies/mL.This SARS CoV-2 test is a real-time RT-PCR test intended for the qualitative detection of nucleic acid from SARS-CoV-2 in a nasopharyngeal swab specimen collected from individuals suspected of COVID-19 by their healthcare provider.This test has not been Food and Drug Administration (FDA) cleared or approved. This is a modified version of an approved Emergency Use Authorization (EUA) and is in the process of review by the FDA. Once authorized by the FDA, the issued EUA will be effective until the declaration that circumstances exist justifying the authorization of the emergency use of in vitro diagnostic tests for detection and/or diagnosis of COVID-19 is terminated under Section 564(b)(2) of the Act or the EUA is revoked under Section 564(g) of the Act.Testing was performed using the Aguilar SARS-CoV-2 assay.Fact Sheet for Healthcare Providers:https://www.Knack.it.aguilar/aquiles/ UY_YFPL-MwA-0_RDG_Wyfd_Trjzx_51-840896.pdfFact Sheet for Healthcare Patients:https://www.Knack.it.[employer] megan/aquiles/UN_NGFS-OfH-3_Bmtzzph_Dgxt_Xxlqv_AT_89-362444C0.pdfPerforming Laboratory:[facility] [place] [address] HCG, SERUM, [id number] 09:33:00 Test Item Value Reference Range Interpretation Comments TEST SERUM (BEAKER) (test Negative code = 584) CBC W/PLT COUNT & AUTO [id number] 09:17:00 Test Item Value Reference Range Interpretation Comments WHITE BLOOD CELL COUNT (BEAKER) 6.2 K/ L 4.0-10.0 (test code = 775) RED BLOOD CELL COUNT (BEAKER) 4.45 M/ L 4.00-5.00 (test code = 761) HEMOGLOBIN (BEAKER) (test code = 13.4 GM/DL 12.0-15.5 410) HEMATOCRIT (BEAKER) (test code = 40.9 % 36.0-46.0 411) MEAN CORPUSCULAR VOLUME (BEAKER) 91.9 fL 82.0-99.0 (test code = 753) MEAN CORPUSCULAR HEMOGLOBIN 30.1 pg 27.0-33.0 (BEAKER) (test code = 751) MEAN CORPUSCULAR HEMOGLOBIN CONC 32.8 GM/DL 32.0-36.0 (BEAKER) (test code = 752) RED CELL DISTRIBUTION WIDTH 13.1 % 12.0-15.0 (BEAKER) (test code = 412) PLATELET COUNT (BEAKER) (test 299 K/CU MM 150-430 code = 756) MEAN PLATELET VOLUME (BEAKER) 9.3 fL 6.0-11.5 (test code = 754) NUCLEATED RED BLOOD CELLS 0 /100 WBC 0-0 (BEAKER) (test code = 413) NEUTROPHILS RELATIVE PERCENT 64 % (BEAKER) (test code = 429) LYMPHOCYTES RELATIVE PERCENT 28 % (BEAKER) (test code = 430) MONOCYTES RELATIVE PERCENT 4 % (BEAKER) (test code = 431) EOSINOPHILS RELATIVE PERCENT 3 % (BEAKER) (test code = 432) BASOPHILS RELATIVE PERCENT 0 % (BEAKER) (test code = 437) NEUTROPHILS ABSOLUTE COUNT 3.92 K/ L 1.80-8.00 (BEAKER) (test code = 670) LYMPHOCYTES ABSOLUTE COUNT 1.72 K/ L 1.48-4.50 (BEAKER) (test code = 414) MONOCYTES ABSOLUTE COUNT (BEAKER) 0.27 K/ L 0.00-1.30 (test code = 415) EOSINOPHILS ABSOLUTE COUNT 0.21 K/ L 0.00-0.50 (BEAKER) (test code = 416) BASOPHILS ABSOLUTE COUNT (BEAKER) 0.02 K/ L 0.00-0.20 (test code = 417) IMMATURE GRANULOCYTES-RELATIVE 0 % 0-0 PERCENT (BEAKER) (test code = 2801) POCT URINALYSIS W SPECIFIC [id number] 16:21:00 Test Item Value Reference Range Interpretation Comments POCT U SP GRAV (test code = . 1.005-1.025 3255) POCT PH U (test code = 3254) 7 mg/dl 5-8 POCT U LEUK EST (test code = negative Negative - Negative 3263) POCT U NIT (test code = 3262) negative Negative - Negative POCT U PROT (test code = 3259) trace Negative - Negative POCT U GLU (test code = 3256) negative Negative - Negative POCT U KETONE (test code = 3258) negative Negative - Negative POCT U UROBILI (test code = . 0.2-1 3260) POCT U BILI (test code = 3261) . Negative - Negative POCT U BLD (test code = 3257) negative Negative - Negative POCT U COLOR (test code = 3266) POCT U APPEAR (test code = 3267) [facility] [id number] 16:20:00 Test Item Value Reference Range Interpretation Comments POCT PREG (test code = 1605) Positive On board controls acceptable with C Yes Line (test code = 3574) POCT PREG LOT # (test code = 3575) POCT PREG TEST DATE (test code = 3576) [facility]
== END 2021-06-16 05:08 | disposition home or self-care (01) ==
LOC: ER 02:57
DX: K80.20 Calculus of gallbladder without cholecystitis without obstruction (principal); E03.9 Hypothyroidism, unspecified
CPT/HCPCS: 93005; 85025; 80048; 36415; 80076; 83690; 76705; 99285; J7030; J2405

== ENCOUNTER 2021-07-01 08:45 | Day surgery (SDC) | payer OTHER ==
[2021-07-01 09:05] LABS: Specific Gravity 1.025 (1.005-1.030)
[2021-07-01] MEDS ORDERED: Ringers Lactate 1,000 ML IV ONE (09:10)
[2021-07-01 09:25] VITALS: O2SAT 100
[2021-07-01] MEDS ORDERED: FENTANYL CITR 100 MCG/2 ML ONE ×2 (09:58→11:21)
[2021-07-01] MEDS ORDERED: MIDAZOLAM HCL 2 MG/2 ML INJ ONE (09:58)
[2021-07-01] MEDS: BUPIVACA 0.5%/EPI 0.0005%/PF 30 ML VIAL ONE ×2 (09:59→10:31)
[2021-07-01] MEDS ORDERED: propofoL 200 MG/20 ML VIAL IV ONE ×2 (09:59→10:50)
[2021-07-01] MEDS ORDERED: ONDANSETRON 4 MG/2 ML VIAL ONE ×2 (09:59→12:13)
[2021-07-01] MEDS ORDERED: ROCURONIUM 50 MG/5 ML VIAL IV ONE (09:59)
[2021-07-01] MEDS ORDERED: LIDOCAINE 2% MPF 5 ML VIAL ONE (09:59)
[2021-07-01] MEDS ORDERED: CEFOXITIN/NS 1gm 1 GM/50 ML BAG ONE (09:59)
[2021-07-01] MEDS ORDERED: dexAMETHasone 10 MG/ML VIAL ONE (10:00)
[2021-07-01] MEDS ORDERED: KETOROLAC 30 MG/ML INJ ONE (10:04)
[2021-07-01] MEDS ORDERED: GLYCOPYRROLATE 0.2 MG/ML SYR ONE (10:54)
[2021-07-01] MEDS ORDERED: NEOSTIGMINE 1 MG/ML -5 ML ONE (11:20)
--- NOTE | 2021-07-01 11:51 | P.OP ---
Preoperative diagnosis: Chronic Cholecystitis with Cholelithiasis Postoperative diagnosis: Chronic Cholecystitis with Cholelithiasis Primary procedure: Laparoscopic Cholecystectomy Secondary procedure: ICG Cholangiography Anesthesia: GETA + Local Estimated blood loss: <20cc Specimen: Gallbladder Findings: short cystic duct, intrahepatic GB Complications: None Transferred to: Recovery Room Condition: Good
[2021-07-01] MEDS: HYDROMORPHONE HCL 1 MG/ML INJ ONE ×2 (12:20→12:25)
[2021-07-01 12:58] VITALS: BP 143/88; TEMP 96.9
[2021-07-01] MEDS ORDERED: HYDROCODONE/APAP 10/325 TAB ONE (13:19)
--- NOTE | 2021-07-01 23:07 | OP ---
Date of Procedure: 07/01/2021 Surgeon: Favian Silver MD, Preoperative Diagnosis: Chronic cholecystitis with cholelithiasis. Postoperative Diagnosis: Chronic cholecystitis with cholelithiasis. Procedure Performed: 1.Laparoscopic cholecystectomy. 2.Indocyanine green cholangiography. Anesthesia: General endotracheal plus local with 0.5% Marcaine with epinephrine. Estimated Fluid Loss: Less than 20 cc. Specimen: Gallbladder. Findings: 1.Short cystic duct. 2.Intrahepatic gallbladder. 3.Oblique course of cystic artery over common and cystic duct. Implants: Stephen procoagulant powder. Complications: None. Disposition: The patient was transferred to recovery room in good condition. Procedure In Detail: After informed was obtained, the patient was brought to the operating room, pre pped and draped in the usual sterile fashion. After adequate anesthesia was achieved, supraumbilical area was anesthetized with 0.25% Marcaine, sharply incised. A 5 mm trocar was placed under direct v isualization without evidence of complication. Insufflation obtained to 15 mmHg at this time. No in jury to vital structures upon entry into the abdomen. The patient was positioned head up position. Three additional trocars were placed. One in the epigastrium, two in the right upper quadrant. All of these were similarly anesthetized, sharply incised. A 5 mm trocar was placed under direct visuali zation without any evidence of complication. The umbilical trocar was then up-sized to 12 mm under d irect visualization without any evidence of complication. I grasped the gallbladder unsuccessfully a nd as such I brought a decompression needle and the gallbladder was found to be quite distended and u nable to be grasped with a grasper due to significant tension of the gallbladder. The gallbladder wa s decompressed at the fundus of the gallbladder with a decompression needle. Significant amount of f luid was returned at this time. There was significant intraabdominal adhesions from the omentum to t he anterior surface of the gallbladder. This was bluntly dissected using electrocautery as well. Af ter the gallbladder was completely cleared and decompressed, I grasped the gallbladder, placed toward the patient's right shoulder. The patient was positioned in a gallbladder position, head up right-s vinita upright position. After placing the patient's gallbladder, which was placed toward the right izaiah ulder, dissection continued down to expose the common duct and cystic duct junction. The cystic duct was found to be very short and truncated. ICG cholangiography confirmed the position and the anatom y with the takeoff of the cystic duct very close to the common duct. The cystic artery ran obliquely across the confluence of the cystic duct and common duct junction making dissection quite challengin g at this point. Therefore, I dissected the cystic artery first and as its coarse ran across the com mon duct and cystic duct junction to allow for mobilization of the gallbladder further. I took the p eritoneum down the medial and lateral aspects and clipped the cystic artery on the proximal side with 2 titanium clips and singly on the distal side with single titanium clip. I ligated this structure after the critical view of safety was obtained, after skeletonizing all the structures. I then clipp ed the cystic duct doubly on the proximal side and singly on the distal side on the cystic duct and l igated the structure at this point. The gallbladder was then removed from hepatic fossa. The gallbl adder was found to be significantly intrahepatic at this point. There was no leakage of bile or bloo d from the clipped named structures. I removed the gallbladder from the hepatic fossa. There was ne ed for significant fulguration to the entire hepatic fossa as the tissue was quite friable and had si gnificant oozing throughout at this point. After the gallbladder was removed, it was placed in an En doCatch bag and removed through the umbilical trocar. I then performed additional fulguration of the hepatic fossa, irrigated the area copiously and inspected for hemostasis. When hemostasis was achie eusebia, there was no oozing and as such I sprayed Stephen procoagulant powder into the hepatic fossa and laid the patient back in neutral position. At this point, the umbilical trocar was removed. The umb ilical trocar site was closed using a Clint-Isabelle suture passer with a 0 Vicryl interrupted fashi on with good approximation of tissues. All remaining trocars were removed under direct visualization after completely decompressing the abdomen. All trocars removed. All skin incisions were copiously irrigated and closed with 4-0 Monocryl in a running fashion. Dermabond was placed over the top. Th e patient tolerated the procedure well without evidence of complication, transferred to PACU in good condition. All counts were correct at the end of the case. TK/MODL Voice ID: [id number] Report ID: [id number]
== END 2021-07-01 14:00 | disposition home or self-care (01) ==
LOC: OR 08:45
PROVIDERS: ATTEND Surgery
PROC: 0FT44ZZ Resection of Gallbladder, Percutaneous Endoscopic Approach (ICD-10-PCS; 2021-07-01)
PROC: BF53200 Other Imaging of Gallbladder and Bile Ducts using Fluorescing Agent, Indocyanine Green Dye, Intraoperative (ICD-10-PCS; 2021-07-01)
PROC: 0FT44ZZ Resection of Gallbladder, Percutaneous Endoscopic Approach (ICD-10-PCS; principal; 2021-07-01 09:30)
DX: K80.00 Calculus of gallbladder with acute cholecystitis without obstruction (principal); Z20.822 Contact with and (suspected) exposure to COVID-19
CPT/HCPCS: 81025; 88304; 47562; U0003; J2704 ×2; J2250; J3010 ×2; J1100; J1170; J2710; J7120; J0694; J2405 ×2; C9776